=== PATIENT | female | born 1990 | race Caucasian/White ===

== ENCOUNTER 2017-09-30 11:44 | Emergency (ER) | payer BC ==
[~2017-09-30] VITALS: Ht 162.6 cm; Wt 71.2 kg
[~2017-09-30 11:44] MED LIST: IMITREX; NORCO 5-325 TA1 EACH PO; PRENATA CHEWAB1 EACH PO; TOPAMAX
[2017-09-30 11:56] LABS: URINE BILIRUBIN NEGATIVE (Negative); URINE BLOOD 3+ (Negative); URINE CLARITY CLOUDY; URINE COLOR RED; URINE GLUCOSE-RANDOM* NEGATIVE (Negative); URINE KETONES NEGATIVE (Negative); URINE LEUKOCYTES-REFLEX NEGATIVE (Negative); URINE NITRITE-REFLEX NEGATIVE (Negative); URINE PROTEIN (DIPSTICK) 1+ (Negative); URINE SPECIFIC GRAVITY <= 1.005 (1.005-1.035); URINE UROBILINOGEN 0.2 E.U./dl (0.2-1.0)
[2017-09-30 12:04] LABS: CASTS None Seen /LPF (None Seen); SQUAMOUS >10 Many /LPF (0-3)
[2017-09-30 12:05] LABS: BACTERIA-REFLEX 1-9 Few /HPF (None Seen); CRYSTALS None Seen /LPF (None Seen); URINE RBC >20 Many /HPF (0-2); URINE WBC-REFLEX 0-5 Rare /HPF (0-5)
[2017-09-30] MEDS ORDERED: AMBIEN 5 MG TABL5 M1 PO (12:18)
[2017-09-30] MEDS ORDERED: PRILOSEC 20 MG20 MG PO (12:18)
[2017-09-30 12:31] LABS: ABSOLUTE NEUTROPHILS 4.9 thou/uL (1.4-8.2); BASOPHILS 1.2 % (0.0-2.0); EOSINOPHILS 0.5 % (0.0-3.0); HEMATOCRIT 40.4 % (37.0-47.0); HEMOGLOBIN 13.6 gm/dL (12.0-15.0); LYMPHOCYTES 19.4 % (24.0-44.0); MCH 30.8 pg (26.0-34.0); MCHC 33.6 g/dL (28.0-37.0); MCV 91.7 fL (80.0-100.0); MONOCYTES 6.7 % (1.0-8.0); PLATELET COUNT 305 thou/uL (150-400); POLYS 72.2 % (36.0-66.0); RDW 12.8 % (10.5-14.5); WBC 6.7 thou/uL (4.0-11.0)
[2017-09-30 12:39] LABS: CALCIUM 9.4 mg/dL (8.5-10.1)
[2017-09-30] MEDS ORDERED: BACTRIM DS TAB1 EAC1 PO (13:56)
[2017-09-30 14:10] VITALS: BP 106/72
== END 2017-09-30 14:13 | disposition home or self-care (01) ==
LOC: ER 11:44
PROVIDERS: Emergency Medicine
DX: R31.9 Hematuria, unspecified (principal); R39.15 Urgency of urination